=== PATIENT | female | born 1980 | race Caucasian/White ===

== ENCOUNTER 2025-05-25 18:23 | Emergency (ER) | payer OTHER, SELFPAY ==
--- OUTSIDE RECORDS SUMMARY | 2025-05-07 02:30 | XMS_ITS | Continuity of Care Document ---
Author Organization [facility] [place] Address [address] [place] [address] Phone Care Team Providers Care Type Cutter Name Role Phone Siddharth Garland PT Unavailable Unavailable Procedures Procedure Date Therapeutic Activities Neuromuscular Re-Ed Therapeutic Exercise Manual Therapy Therapeutic Activities Neuromuscular Re-Ed Therapeutic Exercise Manual Therapy Hot or Cold Pack Therapeutic Activities Neuromuscular Re-Ed Therapeutic Exercise Manual Therapy Dry Needling 1-2 muscles Therapeutic Activities Neuromuscular Re-Ed Therapeutic Exercise Manual Therapy Hot or Cold Pack Therapeutic Activities Neuromuscular Re-Ed Therapeutic Exercise Manual Therapy Hot or Cold Pack Dry Needling 1-2 muscles Therapeutic Activities Neuromuscular Re-Ed Therapeutic Exercise Manual Therapy Hot or Cold Pack Dry Needling 1-2 muscles Therapeutic Activities Neuromuscular Re-Ed Therapeutic Exercise Manual Therapy Hot or Cold Pack Dry Needling 1-2 muscles Therapeutic Activities Neuromuscular Re-Ed Therapeutic Exercise Manual Therapy Dry Needling 1-2 muscles Therapeutic Activities Neuromuscular Re-Ed Therapeutic Exercise Manual Therapy Dry Needling 1-2 muscles Therapeutic Activities Neuromuscular Re-Ed Therapeutic Exercise Manual Therapy Dry Needling 1-2 muscles PT Evaluation High Complexity Therapeutic Activities Neuromuscular Re-Ed Dry Needling 1-2 muscles Advance Directives Directive Yes / No Effective Date File Name No Information Encounters Encounter Description Practice Location Reason(s) For Visit Diagnoses Date Provider Providers Copied on Encounter [facility] [facility] [place], [place], [id number], tel:[phone] [place] No Information Gill Messina. . Referring Provider: Leon Aguayo, [address] , [place], [address]. tel:[phone] [facility] [address], [place], [place], [id number], tel:[phone] [place] No Information Iveth Black. . Referring Provider: Leon Aguayo, [address] , [place], [address]. tel:[phone] [facility], [place], [place], [address], tel:[phone] [place] No Information Gill Messina. . Referring Provider: Leon Aguayo, [address], [place], [address]. tel:[phone] [facility], [place], [place], [address], tel:[phone] [place] No Information Garrels Sofia. . Referring Provider: Leon Pondcheco, [address], [place], [address]. tel:[phone] [facility], [address], [place], [place], [id number], tel:[phone] [place] No Information Hisky Siddharth. . Referring Provider: Leon Apontevolodymyr, [address] , [place], [address]. tel:[phone] [facility] [facility], [place], [place], [address], tel:[phone] [place] No Information Hisky Siddharth. . Referring Provider: Leon Apontevolodymyr, [address] , [place], [address]. tel:[phone] [facility], [address] [facility], [place], [place], [address], [place] tel:[phone] [place] No Information Garrels Sofia. . Referring Provider: Leon Apontevolodymyr, [address] , [place], [address]. tel:[phone] [facility] [facility], [place], [place], [address], [place] tel:[phone] [place] No Information Hisky Siddharth. . Referring Provider: Leon Apontevolodymyr, [address] , [place], [address]. tel:[phone] [facility], [place], [place], [address], tel:[phone] [place] No Information Hisky Siddharth. . Referring Provider: Leon Apontevolodymyr, [address] , [place], [address]. tel:[phone] [facility], [address], [place], [place], [address], tel:[phone] [place] No Information Gill Messina. . Referring Provider: Leon Aguayo, [address], [place], [address]. tel:[phone] [facility], [place], [place], [address], tel:[phone] [place] No Information Gill Messina. . Referring Provider: Leon Aguayo, [address], [place], [address]. tel:[phone] Family History Family Member Type Diagnosis Age At Onset No Information Payers Payer name Insurance type Covered constitution party ID Authorkyraa gillian(s) Lien-LOP LI 00 Social History Type Description Quantity Date Captured Comments Sex Female Smoking Status No Information Chief Complaint And Reason For Visit No Information Reason For Referral Reason For Referral No Information History Of Present Illness Encounter Date Complaint History Of Prese nt Illness No Information Functional Status Date Functional Assessmen t No Information Instructions Date Instruction Additional Infor mation No Information Assessments Type Assessment Date No Information Patient Care Teams Name Effective Dates (start - stop) Status Members No Information
--- OUTSIDE RECORDS SUMMARY | 2025-05-07 02:30 | XMS_ITS | Continuity of Care Document ---
Author Organization [facility] [place] Address [address] [place] [address] Phone Care Team Providers Care Shoer Name Role Phone Siddharth Garland PT Unavailable [...] Diagnoses Date Provider Providers Copied on Encounter [facility] [facility] [facility], [place], [place], [id number], tel:[phone] [place] No Information Gill Messina. . Referring Provider: Leon Aguayo, [address] , [place], [address]. tel:[phone] [facility] [address], [place], [place], [address], tel:[phone] [place] No Information Iveth Black. . Referring Provider: Leon Aguayo, [address] , [place], [address]. tel:[phone] [facility], [place], [place], [address], tel:[phone] [place] No Information Gill Messina. . Referring Provider: Leon Aguayo, [address], [place], [address]. tel:[phone] [facility], [place], [place], [address], tel:[phone] [place] No Information Garrels Sofia. . Referring Provider: Leon Pondcheco, [address], [place], [address]. tel:[phone] [facility], [address] [facility] [address], [place], [place], [address], tel:[phone] [place] No Information Hisky Siddharth. . Referring Provider: Leon Apontevolodymyr, [address] , [place], [address]. tel:[phone] [facility] [facility] [facility], [place], [place], [address], tel:[phone] [place] No Information Hisky Siddharth. . Referring Provider: Leon Apontevolodymyr, [address] , [place], [address]. tel:[phone] [facility], [address] [facility] [address] [facility], [place], [place], [address], [place] tel:[phone] [place] No Information Garrels Sofia. . Referring Provider: Leon Apontevolodymyr, [address] , [place], [address]. tel:[phone] [facility] [facility], [place], [place], [address], [place] tel:[phone] [place] No Information Hisky Siddharth. . Referring Provider: Leon Apontevolodymyr, [address] , [place], [address]. tel:[phone] [facility] [facility] [address], [place], [place], [address], tel:[phone] [place] No Information Hisky Siddharth. . Referring Provider: Leon Apontevolodymyr, [address] , [place], [address]. tel:[phone] [facility], [address], [place], [place], [address], tel:[phone] [place] No Information Gill Messina. . Referring Provider: Leon Aguayo, [address], [place], [address]. tel:[phone] [facility], [place], [place], [address], tel:[phone] [place] No Information Gill Messina. . Referring Provider: Leon Aguayo, [address], [place], [address]. tel:[phone] Family History Family Member Type Diagnosis Age At Onset No Information Payers Payer name Insurance type Covered libertarian ID Authorkyraa gillian(s) Lien-LOP LI 00 Social [...]
[2025-05-25 18:28] VITALS: BP 126/76; PULSE 64; RESP 20; TEMP 36.5; O2SAT 98
--- NOTE | 2025-05-25 18:31 | ED_ITS ---
HPI - Female Genitourinary General Chief complaint: MEMORY CARE PROGRAM RESIDENT Stated complaint: Tampon is stuck Source: patient and RN notes reviewed Mode of arrival: ambulatory Limitations: no limitations History of Present Illness HPI Narrative: 45-year-old female presented for complaint of a retained foreign body. States she inserted a tampon today at 1500, and the string was lost, and she is unable to remove it. denies pain. Related Data Allergies Allergy/AdvReac Type Severity Reaction Status Date / Time Penicillins Allergy Mild RASH Verified 07/21/13 06:36 Quinolones Allergy Mild HIVES Verified 07/21/13 06:36 levofloxacin Allergy Verified 07/21/13 06:36 SHELLFISH Allergy Mild NAUSEA Uncoded 01/30/08 06:47 Review of Systems Review of Systems: CONSTITUTIONAL: Denies body aches, fever, chills, or sweats. CARDIOVASCULAR: Denies chest pain, palpitations, or edema. RESPIRATORY: Denies cough or dyspnea. GASTROINTESTINAL: Denies abdominal pain, nausea, vomiting, or diarrhea. GENITOURINARY: Reports retained tampon denies dysuria, frequency, urgency, hematuria, flank pain, discharge SKIN: Denies rash, itching, or wounds. MUSCULOSKELETAL: Denies back pain or myalgia. PMFSH Comments At time of signature, I have reviewed and agree with nursing past medical, surgical, social and family history unless otherwise noted. Please see nursing chart for further information. There is no relevant family history pertinent to the presenting complaint Exam Narrative: GENERAL: Well-appearing and in no acute distress. ENT: Mucous membranes pink and moist. NECK: Normal AROM. Supple. CHEST: No respiratory distress. Clear to auscultation. HEART: Regular rate and rhythm. ABDOMEN: Soft, nontender, nondistended, normal active bowel sounds. No CVA tenderness SKIN: Warm, dry, no rash. NEURO: No focal deficits. Alert and oriented x3. Gait steady. PSYCH: Normal affect. Course Course Emergency Course: Patient is aware of diagnosis, understands and agrees to treatment plan. Anti cipatory guidance given. Patient agrees to follow-up as directed and is aware of reasons to seek care at the emergency department. Portions of this record may have been created with voice recognition software Level of Care: Express Care Visit Vital Signs Vital signs: Vital Signs Temperature 97.7 F 05/25/25 18:28 Pulse Rate 64 05/25/25 18:28 Respiratory Rate 20 05/25/25 18:28 Blood Pressure 126/76 05/25/25 18:28 Pulse Oximetry 98 05/25/25 18:28 Oxygen Delivery Room Air 05/25/25 18:28 Temperature 97.7 F 05/25/25 18:28 Pulse Rate 64 05/25/25 18:28 Respiratory Rate 20 05/25/25 18:28 Blood Pressure 126/76 05/25/25 18:28 Pulse Oximetry 98 05/25/25 18:28 Oxygen Delivery Room Air 05/25/25 18:28 Reviewed Procedures Foreign Body Removal Foreign Body #1: Site: vagina Description of foreign body: other (tampon) Confirmed by:: direct visualization Complications: none Foreign Body Removal Narrative: Tampon removed via speculum and forceps. Tolerated well. MDM - Female Genitourinary MDM Narrative Medical decision making narrative: Pt tolerated removal of tampon without any difficulty. Differential Diagnosis Differential diagnosis: Likely other (Foreign body) Discharge Plan Discharge Clinical Impression: Foreign body Patient Disposition: Home Condition: Stable Instructions: Antibiotic Form, Vaginal Foreign Body (ED) Additional Instructions: Follow up with your primary care provider as needed in 1 week Go to the ER for worsening symptoms or concerns Patient Language: Tamazight Follow-up/Referrals: PHYSICIAN,PRINTED CIRCUIT BOARD DRAFTER [Primary Care Provider, Internal Medicine] Time of Disposition: 18:46
--- NOTE | 2025-05-25 19:02 | PC.NURSE ---
Tampon removed by ASSOCIATE ACCOUNT DIRECTOR with forceps and speculum. Tolerated well.
--- OUTSIDE RECORDS SUMMARY | 2025-05-25 19:18 | XMS_ITS | Clinical Summary ---
Author Organization [facility] Address [address] [place] [address] Phone Care Team Providers Care Electronic Controls Repairer Supervisor Name Role Phone Provider, None Primary Care Provider Unavailabl e Allergies Active Allergy Reactions Criticality Noted Date Comments Egg-Derived Products Hives 07/17/2017 Levofloxacin In D5w Hives 07/06/2016 Penicillins Rash 07/06/2016 Shellfish Allergy Shortness of Breath,Rash 03/2017 Medications HYDROcodone-shell taminophen (NORCO) 5-325 MG Tablet Take 1 Tab by mouth every 4 hours as needed for Pain. 15 Tab 07/17/2017 Active HYDROcodone-shell taminophen (NORCO) 5-325 MG Tablet Take 1 Tab by mouth every 6 hours as needed for Moderate or more severe pain. 15 Tab 10/27/2019 Active omeprazole (PRILOSEC) 20 MG CAPSULE DELAYED RELEASE Take 2 Caps by mouth daily. 30 Cap 10/27/2019 Active Social History Tobacco Use Types Packs/Day Years Used Date Smoking Tobacco: Former Cigarettes Smokeless Tobacco: Never Alcohol Use Standard Drinks/Week Comments No 0 (1 standard drink = 0.6 oz pur e alcohol) Comments No Sex and Gender Information Value Date Recorded Sex Assigned at Not on file Legal Sex Female 9:01 PM CDT Gender Identity Not on file Sexual Orientation Not on file Last Filed Vital Signs Vital Sign Reading Time Taken Comments Blood Pressure 114/61 10/27/2019 7:30 PM FRONT MAN Pulse 61 10/27/2019 7:42 PM FRONT MAN Temperature 36.7 C (98.1 F) 10/27/2019 4:13 PM FRONT MAN Respiratory Rate 16 10/27/2019 4:13 PM FRONT MAN Oxygen Saturation 100% 10/27/2019 7:42 PM FRONT MAN Inhaled Oxygen Concentration - - Weight 79.4 kg (175 lb) 10/27/2019 4:13 PM FRONT MAN Height 170.2 cm (5' 7) 10/27/2019 4:13 PM FRONT MAN Body Mass Index 27.41 10/27/2019 4:13 PM FRONT MAN Plan of Treatment Health Maintenance Due Date Last Done Comments Hepatitis C Virus (HCV) Screening 1979 TdaP Immunization 1979 Hepatitis B Immunization (1 of 3 - 19+ 3-dose series) 1998 Pap Smear 2000 Cervical Cancer Screening (CCS) 2009 HPV/Cotest 2009 Cologuard 2024 Colonoscopy 2024 Colorectal Cancer Screening 2024 Immunochemical Fecal Occult Blood 2024 Influenza Immunization (#1) 2025 SARS-COV-2 Immunization ( season) 2025 Respiratory Syncytial Virus (RSV) Immunization (Adult) (1 - 1-dose 75+ series) 2054 Human Papillomavirus (HPV) Immunization Aged Out No longer eligible b ased on patient's age to complete this topic Meningococcal Immunization (ACWY) Aged Out No longer eligible based on patient's age to complete this topic Pneumococcal Immunization Combined Aged Out No longer eligible based on patient's age to complete this topic Rotavirus Immunization Aged Out No lo nger eligible based on patient's age to complete this topic Insurance MEDICAID [employer] Care Teams Electronic Controls Repairer Supervisor Relationship Specialty Start Date End Date Provider, None [place] PCP - General 07/06/16
--- OUTSIDE RECORDS SUMMARY | 2025-05-25 19:18 | XMS_ITS | Clinical Summary ---
Author Organization [facility] Address [address] [place] [address] Care Team Providers Care Livestock Trucker Name Role Phone Frandy Ellis Jr. Primary Care Provider [phone] Source Comments [facility],non-owned Affiliates and Associated Physician Practices is amultiple site organization consisting of ambulatory clinics and hospital sitesin [place], [place], [place] and [place]. This disclosure is being madepursuant to the Care Everywhere program and may not contain all information available regarding this patient. Last updated 18.[facility] Allergies Active Allergy Reactions Criticality Noted Date Comments Levaquin Skin Reactions Medium 12/11/2014 Penicillins Skin Reactions Medium 12/11/2014 Medications * Be aware that medications may not be up to date on this document. Alwaysverify current medications with the patient. HYDROcodone-acet aminophen (NORCO) 5-325 MG tablet Take 1 tablet by mouth every 6 hours as needed for Pain 8 tablet 10/23/2019 Active Social History Tobacco Use Types Packs/Day Years Used Date Smoking Tobacco: Former Cigarettes Smokeless Tobacco: Never Alcohol Use Standard Drinks/Week Comments No 0 (1 standard drink = 0.6 oz pur e alcohol) Comments Unknown Sex and Gender Information Value Date Recorded Sex Assigned at Not on file Legal Sex Female 6:19 PM EXEC. CREATIVE DIRECTOR Gender Identity Not on file Sexual Orientation Not on file Last Filed Vital Signs Vital Sign Reading Time Taken Comments Blood Pressure 120/69 10/23/2019 8:11 PM EXEC. CREATIVE DIRECTOR Pulse 61 10/23/2019 8:11 PM EXEC. CREATIVE DIRECTOR Temperature 36.6 C (97.8 F) 10/23/2019 8:11 PM EXEC. CREATIVE DIRECTOR Respiratory Rate 18 10/23/2019 8:11 PM EXEC. CREATIVE DIRECTOR Oxygen Saturation 98% 10/23/2019 8:11 PM EXEC. CREATIVE DIRECTOR Inhaled Oxygen Concentration - - Weight 68 kg (150 lb) 10/23/2019 5:24 PM EXEC. CREATIVE DIRECTOR Height 170.2 cm (5' 7) 10/23/2019 5:24 PM EXEC. CREATIVE DIRECTOR Body Mass Index 23.49 10/23/2019 5:24 PM EXEC. CREATIVE DIRECTOR Plan of Treatment Health Maintenance Due Date Last Done Comments COLOGUARD (AGES 45-75) - COL ON CA SCREENING 1979 COLON MONITORING 1979 COLONOSCOPY - COLON CA SCREENING 1979 CT COLONOGRAPHY - COLON CA SCREENING 1979 Colorectal Cancer Screening 1979 FIT - COLON CA SCREENING 1979 FLEX SIG - COLON CA SCREENING 1979 LIPID TESTING 1979 MAMMOGRAM 1979 HIV SCREENING 1994 HEPATITIS C SCREENING 03/04/1997 DTAP/TDAP/TD VACCINES (1 - Tdap) 1998 HEPATITIS B VACCINE (1 of 3 - 19+ 3-dose series) 1998 DEPRESSION SCREENING 09/10/2024 COVID-19 VACCINE (1 - 2023-2 5 season) 2025 INFLUENZA VACCINE (#1) 2025 ZOSTER VACCINE (1 of 2) 2029 HIB VACCINE Aged Out No longer eligi ble based on patient's age to complete this topic HPV VACCINE Aged Out No longer eligi ble based on patient's age to complete this topic MENINGOCOCCAL (Group B) VACC INE SHARED DECISION-MAKING Aged Out No longer eligibl e based on patient's age to complete this topic MENINGOCOCCAL GROUPS A/C/Y/W VACCINE Aged Out No longer eligible b ased on patient's age to complete this topic PNEUMOCOCCAL VACCINE Aged Out No long er eligible based on patient's age to complete this topic Insurance [facility] Care Teams Livestock Trucker Relationship Specialty Start Date End Date Frandy Ellis Jr. [address] [place] [address] PCP - General 11/12/19
--- OUTSIDE RECORDS SUMMARY | 2025-05-25 19:18 | XMS_ITS | Patient Health Record ---
Author Organization [facility] Address [address] [address] Care Team Providers Care Director Of Scout Work Name Role Phone Leon Aguayo Unavailable [phone] Allergies Allergen (clinical drug ingredient) Drug/Non Drug Allergy documented on EMR Reaction Allergy Type Onset Date Status Levaquin Hives Drug Allergy Active Penicillin Rash Drug Allergy Active Reason For Referral No Information Medications Medication SIG (Take, Route, Frequency, Duration) Notes Start Date End Date Status Lidocaine 5 % External; Duration: 14 Days Not-Taking Baclofen 10 MG 1 tablet with food o r milk Orally Three times a day; Duration: 30 day(s) 02/26/2025 Active Naproxen 500 MG Oral; Duration: 15 Days Not-Taking Methocarbamol 500 MG Oral; Duration: 10 Days Not-Taking Social History Tobacco Use: Social History Observation Description Date Details (start date - stop date) Current Smoker NA - NA Tobacco Control (Standard) Question Answer Notes Tobacco use: Current smoker Problems Problem Type SNOMED Code ICD Code Onset Dates Problem Status W/U Status Risk Notes Problem Muscle pain (20017732) Myalgia, unspecified site (M79.10) Active confirmed Problem Neck pain (14814324) Neck pain (M54.2) Active confirmed Problem Low back pain (927589772) Low back pain, unspecified (M54.50) Active confirmed Vital Signs Heart Rate 69 /min 03/19/2025 Temperature 98.2 degrees Fahrenheit 03/19/2025 Respiratory Rate 18 /min 03/19/2025 Blood pressure diastolic 83 mm Hg 03/19/2025 Height 66 in 03/19/2025 Blood pressure systolic 131 mm Hg 03/19/2025 Weight 155 lbs 03/19/2025 BMI 25.01 kg/m2 03/19/2025 Encounters Encounter Location Date Provider Diagnosis [facility] [address] [address] 02/26/2025 Leon Cajigal Neck pain M54.2 ; Lo w back pain, unspecified M54.50 and Myalgia, unspecified site M79.10 [facility] [address] [address] 03/19/2025 Leon Cajigal Neck pain M54.2 ; Lo w back pain, unspecified M54.50 and Myalgia, unspecified site M79.10 Assessments Encounter Date Diagnosis (ICD Code) Assessment Notes Treatment Notes Treatment Clinical Notes Section Notes 02/26/2025 Neck pain (ICD-10 - M54.2) 02/26/2025 Low back pain, unspecified (ICD-10 - M54.50) 03/19/2025 Neck pain (ICD-10 - M54.2) 03/19/2025 Low back pain, unspecified (ICD-10 - M54.50) 02/26/2025 Myalgia, unspecified site (ICD-10 - M79.10) 03/19/2025 Myalgia, unspecified site (ICD-10 - M79.10) 02/26/2025 Other Plan:1. No UDS today. Will not pursue opioid therapy in this patient.2. Recommend to remain as active as possible.3. History of conservative therapy with [place] [facility] with persistent pain fortunately.4. History of trigger point injection with great benefit. Repeat today given history, physical exam findings5. Recommend to pursue heating, stretching, massage, exercise for myofascial pain.6. Start trial of baclofen, muscle relaxant, to see if better benefit with less sedation.7. Return to clinic in 2 weeks for reevaluation of pain 03/19/2025 Other Plan:1. Will not pursue opioid therapy in this patient.2. Recommend to remain as active as possible.3. History of conservative therapy with [facility] with persistent pain fortunately.4. History of trigger point injection with great benefit. Repeat today given history, physical exam findings5. Recommend to pursue heating, stretching, massage, exercise for myofascial pain.6. Continue baclofen as benefit7. Physical therapy consult 8. Letter was given to patient notifying them of my departure from the practice with my last day being on 05/10/2025. A list of providers in the area was also given to them so they can have continuity of care and avoid interruption in their medical treatment. 9. Return to clinic as needed Plan Of Treatment No Information Medical (General) History Medical History History ICD Code thyroid disease idiopathic thrombocytopenia purpura rheumatoid arthritis headaches Surgical History Surgery Date(Month/Year) Gallbladder removed 04/2024 C Section 10/2005 C Sectiom 02/2003 C Section 06/2000
== END 2025-05-25 18:50 | disposition home or self-care (01) ==
PROVIDERS: Emergency Provider Nurse Practitioner Family
DX: T19.2XXA Foreign body in vulva and vagina, initial encounter (principal); W44.8XXA Other foreign body entering into or through a natural orifice, initial encounter
CPT/HCPCS: 99212; G0463